=== PATIENT | male | born 1995 | race Caucasian/White ===

== ENCOUNTER 2021-10-29 20:28 | Emergency (ER) | payer BC, SELFPAY ==
[2021-10-29 20:32] VITALS: BP 142/88; PULSE 84; RESP 18; TEMP 37.2; O2SAT 96; BMI 29.1
[2021-10-29 20:57] LABS: Anion Gap 9.7 mEq/L (5-15); Blood Urea Nitrogen 15 mg/dl (9-20); Calcium 9.4 mg/dl (8.4-10.2); Carbon Dioxide 28 mmol/L (22.0-30.0); Chloride 107 mmol/L (98-107); Creatinine Clearance Estimated 175 mL/min (50-200); Estimated Glomerular Filt Rate 104 ml/min (>60); GFR (African American) 125 ML/MIN (>60); Glucose 123 mg/dl (74-100); Magnesium 1.6 mg/dl (1.6-2.3); Potassium 3.7 mmoL/L (3.5-5.1); Sodium 141 mmol/L (136-145)
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
[2021-10-29 21:09] LABS: Basophils # 0.1 K/mm3 (0-0.2); Basophils % 1.1 % (0.1-2.0); Eosinophils # 0.2 K/mm3 (0.0-0.4); Eosinophils % 2.5 % (0.1-12.0); Hematocrit 44.6 % (42.0-52.0); Hemoglobin 14.2 g/dL (14.1-18.0); Lymphocytes # 2.9 K/mm3 (0.7-4.5); Lymphocytes % 39.5 % (10-50); Mean Corpuscular HGB Conc 31.9 g/dL (31.8-35.4); Mean Platelet Volume 9.2 fl (7.4-10.4); Monocytes # 0.5 K/mm3 (0.1-1.0); Monocytes % 7.4 % (1.7-9.3); Neutrophils # 3.6 K/mm3 (1.8-7.8); Neutrophils % 49.5 % (37.0-80.0); Platelet Count 196 K/mm3 (142-424); Red Blood Count 5.07 M/mm3 (4.60-6.20); Red Cell Distribution Width 12.7 % (11.5-17.5); White Blood Count 7.2 K/mm3 (4.8-10.8)
[2021-10-29 21:14] VITALS: BP 133/85; PULSE 80; RESP 16
[2021-10-29 21:50] VITALS: BP 130/80; PULSE 78; RESP 18; TEMP 36.6; O2SAT 99
== END 2021-10-29 21:53 | disposition home or self-care (01) ==
PROVIDERS: Emergency Provider Emergency Medicine
DX: T20.20XA Burn of second degree of head, face, and neck, unspecified site, initial encounter (principal)
CPT/HCPCS: 80048; 83735; 85025; 96365; 96375; 99284; J2405

== ENCOUNTER 2022-10-03 08:09 | Emergency (ER) | payer OTHER, SELFPAY ==
[2022-10-03 08:10] VITALS: BP 150/60; PULSE 69; RESP 18; TEMP 36.4; O2SAT 100; BMI 29.8
--- NOTE | 2022-10-03 08:18 | CT_ITS ---
FINAL REPORT TECHNIQUE: Noncontrast exam CLINICAL HISTORY: right flank pain COMPARISON: None FINDINGS: Abdomen: Lung bases are clear. A small hiatal hernia is present. Liver, spleen, pancreas and adrenal glands have a normal CT appearance in their limited unenhanced state. There are numerous small right renal calyceal stones. There is moderate right hydronephrosis and hydroureter secondary to a 6 mm distal ureteral stone at the pelvic brim. No obvious renal mass is present. Pelvis: 6 mm distal ureteral stone at the pelvic brim as described above, seen best in axial image #91. Bladder is unremarkable. No fluid collection or adenopathy is seen. The appendix is normal in appearance. IMPRESSION: Moderate right hydronephrosis and hydroureter secondary to 6 mm distal ureteral stone at the pelvic brim. Numerous small right renal calyceal stones. Reviewed, Interpreted and Dictated by Jonathan Frederick MD Transcribed by Karissa Magallon Authenticated and [facility]
--- NOTE | 2022-10-03 08:18 | PC.NURSE ---
DR PLATA AT BEDSIDE
[2022-10-03 08:26] LABS: Microscopic, Urine URINE MICROSCOPIC (MICROSCOPIC)
--- NOTE | 2022-10-03 08:30 | PC.NURSE ---
PT TO CT
[2022-10-03 08:32] LABS: Basophils # 0.1 K/mm3 (0-0.2); Basophils % 0.8 % (0.1-2.0); Eosinophils # 0.3 K/mm3 (0.0-0.4); Eosinophils % 2.9 % (0.1-12.0); Hematocrit 47.9 % (42.0-52.0); Hemoglobin 15.4 g/dL (14.1-18.0); Lymphocytes # 2.7 K/mm3 (0.7-4.5); Lymphocytes % 30.3 % (10-50); Mean Corpuscular HGB Conc 32.2 g/dL (31.8-35.4); Mean Corpuscular Hemoglobin 27.7 pg (27.0-31.2); Mean Corpuscular Volume 85.9 fl (80-94); Mean Platelet Volume 7.8 fl (7.4-10.4); Monocytes # 0.5 K/mm3 (0.1-1.0); Neutrophils # 5.3 K/mm3 (1.8-7.8); Platelet Count 304 K/mm3 (142-424); Red Blood Count 5.57 M/mm3 (4.60-6.20); Red Cell Distribution Width 12.9 % (11.5-17.5); White Blood Count 8.8 K/mm3 (4.8-10.8)
--- NOTE | 2022-10-03 08:32 | HMH.EDGENADL ---
Discharge Plan Disposition Patient Disposition: Home, Self-Care Prescriptions Prescriptions: New ketorolac 10 mg tablet 10 mg PO Q8H PRN (Reason: pain) 5 Days Qty: 14 0RF ondansetron HCl 4 mg tablet 4 mg PO Q6H PRN (Reason: nausea and vomiting) Qty: 10 0RF Referrals Follow up/Referrals: Timmy Hannon MD [Primary Care Provider] - See instructions Clinical Impressions Clinical Impression: Ureterolithiasis, Acute right flank pain, Hematuria Instructions Patient Instructions: DI for Acute Abdominal Pain Discharge ED Provider: Seun Phillip General Adult HPI General Chief complaint: Abdominal Pain Stated complaint: back pain, vomiting Time Seen by Provider: 10/03/22 08:12 Mode of Arrival: Ambulatory Limitations: No Limitations Description of Symptoms (Recalled from ER Triage Doc. by RN): PT WITH SUDDEN ONSET OF RIGHT FLANK PAIN THAT STARTED ABOUT 0630, EMESIS X 4. PT VOIDED THIS AM WITHOUT DIFFICULTY History of Present Illness HPI narrative: This is a 27-year-old male with no relevant medical history presenting with right flank pain. Patient states that he was sitting at work today just prior to arrival when he had an acute onset right flank pain. 8-10 out of 10, does not radiate, associated with nonbloody/nonbilious vomiting, diaphoresis, pallor. Patient also had 1 episode of nonbloody, nonmucousy diarrhea. No fevers, chills, hematuria, dysuria, urinary obstruction, overlying skin changes, recent travel or illness. Patient never had pain like this before. Has not taken anything to make the pain better. Does not notice anything that makes pain worse Related Data Previous Rx's Medication Instructions Recorded ketorolac 10 mg tablet 10 mg PO Q8H PRN pain 5 days #14 10/03/22 tabs ondansetron HCl 4 mg tablet 4 mg PO Q6H PRN nausea and 10/03/22 vomiting #10 tabs Allergies Allergy/AdvReac Type Severity Reaction Status Date / Time No Known Allergies Allergy Verified 07/29/18 12:16 [facility] Disclaimer: The information contained in this section may have been updated after the patient was seen, as this information can be updated by other users. Medical History (Updated 10/03/22 @ 09:22 by Seun Phillip MD) No significant past medical history Family History (Updated 10/03/22 @ 08:22 by Marion Dunn RN) Other No significant family history Social History Smoking Status: Current every day smoker alcohol intake: never current occupational status: employed Travel in the last 8 weeks: None ROS Obtained: Yes All systems reviewed & no additional complaints except as documented Physical Exam General General appearance: alert and in distress (Secondary to pain, uncomfortable in any position. Diaphoretic) Respiratory Respiratory exam: Absent respiratory distress, wheezes, stridor or accessory muscle use Cardiovascular Cardiovascular exam: Present normal rhythm and tachycardia Abdominal Exam Abdominal exam: Present soft; Absent distention, tenderness, guarding, rebound or rigidity Back Exam Back exam: Absent tenderness, CVA tenderness (R), CVA tenderness (L), muscle spasm or paraspinal tenderness Neurological Exam Neurological exam: Present alert and oriented X3 Skin Skin exam: Present diaphoresis and pallor Medical Decision Making Medical Records Medical records reviewed: Yes I reviewed the patient's medical records. Jamal Inquiry Pt receiving controlled substance: No Jamal was queried for this patient: No Vital Signs: 10/03/22 08:10 10/03/22 08:51 Temperature 97.5 F L Temperature Source Oral Pulse Rate [Radial] 69 Respiratory Rate 18 Blood Pressure 164/99 H Blood Pressure [Right Arm] 150/60 H Blood Pressure Mean [Right Arm] 90 Blood Pressure Source [Right Arm] Automatic Cuff Blood Pressure Position [Right Arm] Sitting 02 Sat by Pulse Oximetry 100 Oxygen Delivery Method Room Air [facility]
--- NOTE | 2022-10-03 08:41 | PC.NURSE ---
PT RETURNED FROM CT
[2022-10-03 08:42] LABS: Appearance,Urine CLEAR (Clear); Bilirubin,Urine Negative (Negative); Blood, Urine 3+ (Negative); Color,Urine YELLOW (Yellow); Glucose,Urine (UA) Negative (Negative); Ketones,Urine Negative (Negative); Leukocyte Esterase,Urine Negative (Negative); Nitrate,Urine Negative (Negative); Protein,Urine Negative (Negative); Specific Gravity, Urine >= 1.030 (1.005-1.030); Urobilinogen,Urine 0.2 EU/dl (0.2)
[2022-10-03 08:43] LABS: Bacteria,Urine Trace /lpf; Squamous Epithelial Cell,Urine Occasional #/hpf (0-5); WBC,Urine Occasional #/hpf (0-3)
[2022-10-03 08:45] LABS: Alanine Aminotransferase 58 U/L (12-78); Albumin Level 4.9 g/dl (3.5-5.0); Albumin/Globulin Ratio 1.7 (1.1-1.8); Alkaline Phosphatase 117 U/L (38-126); Anion Gap 10.6 mEq/L (5-15); Aspartate Amino Transferase 45 U/L (17-59); Bilirubin,Total 0.3 mg/dl (0.2-1.3); Blood Urea Nitrogen 20 mg/dl (9-20); Calcium 9.6 mg/dl (8.4-10.2); Carbon Dioxide 30 mmol/L (22.0-30.0); Chloride 104 mmol/L (98-107); Creatinine Clearance Estimated 133 mL/min (50-200); Estimated Glomerular Filt Rate 74 ml/min (>60); GFR (African American) 89 ML/MIN (>60); Globulin 2.9 g/dL (1.3-3.2); Glucose 124 mg/dl (74-100); Lipase 115 U/L (23-300); Potassium 3.6 mmoL/L (3.5-5.1); Sodium 141 mmol/L (136-145); Total Protein,Serum 7.8 g/dl (6.3-8.2)
--- NOTE | 2022-10-03 08:45 | PC.NURSE ---
DR PLATA UPDATING PT AND FAMILY AT THIS TIME
[2022-10-03 08:51] VITALS: BP 164/99
[2022-10-03 09:00] VITALS: BP 153/87; PULSE 66; RESP 18; O2SAT 98
--- NOTE | 2022-10-03 09:05 | PC.NURSE ---
PT REPORTS FEELING BETTER AFTER MEDICATION, PT ABLE TO REST WITH EYES CLOSED. FAMILY AT BEDSIDE. CALL LIGHT WITHIN REACH
--- NOTE | 2022-10-03 09:15 | PC.NURSE ---
DR PLATA AT BEDSIDE TO UPDATE PT AND FAMILY ON POC
[2022-10-03 09:30] VITALS: BP 153/87; PULSE 63; RESP 18; TEMP 36.7; O2SAT 99
== END 2022-10-03 09:30 | disposition home or self-care (01) ==
PROVIDERS: Emergency Provider Emergency Medicine; PCP Internal Medicine Adolescent Medicine
DX: N13.30 Unspecified hydronephrosis (principal); N20.2 Calculus of kidney with calculus of ureter; F17.200 Nicotine dependence, unspecified, uncomplicated
CPT/HCPCS: 74176; 80053; 81001; 83690; 85025; 96361; 96374; 96375; 99285; J2405

== ENCOUNTER → 2022-10-10 12:27 | Outpatient (CLI) | payer OTHER, SELFPAY ==
--- NOTE | 2022-10-10 12:33 | XR_ITS ---
FINAL REPORT CLINICAL HISTORY: RT URETERAL STONE COMPARISON: CT dated 10/03/2022 FINDINGS: SINGLE VIEW ABDOMEN A single view of the abdomen was obtained. There is a nonobstructive bowel gas pattern. There are no abnormally dilated loops of small bowel. There is a 3 mm right renal stone in the lower pole of the right kidney. There is a 3 to 4 mm right ureteral stone present as well, that given differences in technique appears to be located over the mid sacrum. The stones were present on the the prior CT of October 03. IMPRESSION: Single calcified stone overlying right kidney. Right ureteral stone measuring 3 to 4 mm in size present overlying sacrum. Reviewed, Interpreted and Dictated by John Barker III, MD Transcribed by Karissa Magallon Authenticated and [facility]
== END ==
PROVIDERS: PCP Internal Medicine Adolescent Medicine; Visit Provider Physician Assistant
DX: N20.1 Calculus of ureter (principal)
CPT/HCPCS: 74018